=== PATIENT | male | born 1955 | race Caucasian/White ===

== ENCOUNTER 2017-12-26 10:38 | Inpatient (IN) | payer MEDICAID, OTHER ==
[2017-12-26] MEDS ORDERED: Sodium Chloride 0.9% 1,000 ML IV STA (11:15)
--- NOTE | 2017-12-26 11:20 | ED PDOC ---
Arrival/HPI - General Chief Complaint: Abdominal Pain Time Seen by Provider: 12/26/17 11:06 Historian: Patient, Family (Son, who translated for patient) - History of Present Illness Narrative History of Present Illness (Text): 12/26/17 11:15 A 62 year old male, whose past medical history includes cardiac stent, presents to the emergency department accompanied by son complaining of worsening right lower abdominal pain for the past few days. Patient is Czech speaking, history obtained through son. Patient denies any radiating or exacerbating pain. Son notes giving Ibuprofen without any improvement of symptoms. Patient has been tolerating PO intake, he notes his last meal was yesterday night. Patient denies any fever, chills, body aches, nausea, vomiting, diarrhea, constipation, hematochezia, back pain, chest pain, shortness of breath, cough or any other complaints. PMD: None; Patient is visiting from [place] Time/Duration: Other (few days) Symptom Course: Unchanged Quality: Other ("Pain") Context: Home Past Medical History - Provider Review Nursing Documentation Reviewed: Yes - Cardiac Hx Cardiac Disorders: Yes Other/Comment: STENT - Pulmonary Hx Respiratory Disorders: No - Neurological Hx Neurological Disorder: No - HEENT Hx HEENT Disorder: No - Renal Hx Renal Disorder: No - Endocrine/Metabolic Hx Endocrine Disorders: No - Hematological/Oncological Hx Blood Disorders: No - Integumentary Hx Dermatological Disorder: No - Musculoskeletal/Rheumatological Hx Musculoskeletal Disorders: No - Gastrointestinal Hx Gastrointestinal Disorders: No - Genitourinary/Gynecological Hx Genitourinary Disorders: No - Psychiatric Hx Psychophysiologic Disorder: No Hx Substance Use: No - Surgical History Hx Coronary Stent: Yes Family/Social History - Physician Review Nursing Documentation Reviewed: Yes Family/Social History: No Known Family HX Smoking Status: Never Smoked Hx Alcohol Use: Yes Frequency of alcohol use: Socially Hx Substance Use: No Allergies/Home Meds Allergies/Adverse Reactions: Allergies No Known Allergies Allergy (Verified 12/26/17 10:44) Home Medications: Home Meds Medication Instructions Recorded Confirmed No Known Home Med 12/26/17 12/26/17 Review of Systems - Physician Review All systems were reviewed & negative as marked: Yes - Review of Systems Constitutional: absent: Fevers, Night Sweats Respiratory: absent: SOB, Cough Cardiovascular: absent: Chest Pain Gastrointestinal: Abdominal Pain (RLQ pain). absent: Constipation, Diarrhea, Nausea, Vomiting, Hematochezia Musculoskeletal: absent: Back Pain, Myalgias Physical Exam Vital Signs Reviewed: Yes Vital Signs Temp Pulse Resp BP Pulse Ox 12/26/17 13:50 91 H 17 147/92 H 97 12/26/17 10:51 99.2 F 97 H 16 144/91 H 93 L Temperature: Afebrile Blood Pressure: Hypertensive Pulse: Tachycardic Respiratory Rate: Normal Appearance: Positive for: Well-Appearing, Non-Toxic, Comfortable Pain Distress: None Mental Status: Positive for: Alert and Oriented X 3 - Systems Exam Head: Present: Atraumatic, Normocephalic Pupils: Present: PERRL Extroacular Muscles: Present: EOMI Conjunctiva: Present: Normal Mouth: Present: Moist Mucous Membranes Neck: Present: Normal Range of Motion Respiratory/Chest: Present: Clear to Auscultation, Good Air Exchange. No: Respiratory Distress, Accessory Muscle Use Cardiovascular: Present: Regular Rate and Rhythm, Normal S1, S2. No: Murmurs Abdomen: Present: Tenderness (RLQ tenderness to palpation), Normal Bowel Sounds , McBurney's Point Tender. No: Distention, Peritoneal Signs, Rebound, Guarding Back: Present: Normal Inspection Upper Extremity: Present: Normal Inspection. No: Cyanosis, Edema Lower Extremity: Present: Normal Inspection. No: Edema Neurological: Present: GCS=15, CN II-XII Intact, Speech Normal Skin: Present: Warm, Dry, Normal Color. No: Rashes Psychiatric: Present: Alert, Oriented x 3, Normal Insight, Normal Concentration Medical Decision Making ED Course and Treatment: 12/26/17 11:15 Impression: A 62 year old male with worsening right lower abdominal pain. Patient denies any nausea, vomiting, diarrhea or any other complaints. Differential Diagnosis included but are not limited to: Appendicitis vs. Colitis vs Renal Colic Plan: -- Abdomen and pelvis CT -- Labs -- Toradol and IV fluids -- Reassess and disposition Progress Notes: Report Date : 12/26/2017 13:20:37 PROCEDURE: CT Abdomen and Pelvis with contrast Dictator : Nicola Ornelas MD IMPRESSION: 1. The appendix not identified however there is no CT evidence to suggest appendicitis at this time. Lack of oral contrast limits evaluation of the bowel. 2. Gross right hydroureteronephrosis on a chronic basis most likely. No radiodense urolithiasis consider right ureterovesical junction stricture. Minimal residual right renal parenchyma is suspected. No radiodense urolithiasis appreciated bilaterally. No left-sided obstructive uropathy. Multiple small likely renal cortical infarcts are identified at the lower pole as well as a small, parenchymal lucency too small to characterize. 3. Hepatic steatosis. A small cyst seen at the right lobe liver at the dome with 2 additional small hepatic lucencies too small to characterize. Spoke with Dr. Baeza, who states although he does not visualize the appendix on the CT but has no suspicion for appendicitis. 12/26/17 13:55 Case discussed with urologist Dr. Garsia, who states patient needs a urethral stent and recommends admission to the hospitalist service. Case discussed with Dr. Ashli Sue, who accepts admission to her service. 12/26/17 15:10 EKG shows NSR at 84 BPM with T-wave inversions in lead III and aVF. Interpreted by me. - Lab Interpretations Lab Results: 12/26/17 11:25 12/26/17 11:25 Lab Results 12/26/17 11:25: Sodium 139, Potassium 4.0, Chloride 100, Carbon Dioxide 26, Anion Gap 17, BUN 10, Creatinine 1.0, Est GFR ( Amer) > 60, Est GFR (Non- Af Amer) > 60, Random Glucose 115 H, Calcium 9.8, Total Bilirubin 0.6, AST 17, ALT 24, Alkaline Phosphatase 82, Total Protein 7.8, Albumin 3.8, Globulin 3.9, Albumin/Globulin Ratio 1.0 L, Lipase 53 12/26/17 11:25: PT 11.9, INR 1.03, APTT 69.5 H 12/26/17 11:25: WBC 6.4, RBC 4.92, Hgb 15.1, Hct 44.9, MCV 91.3, MCH 30.7, MCHC 33.6, RDW 12.8, Plt Count 235, MPV 10.1, Gran % 57.5, Lymph % (Auto) 22.8, [place] % (Auto) 17.8 H, Eos % (Auto) 1.6, Baso % (Auto) 0.3, Gran # 3.65, Lymph # (Auto ) 1.5, [place] # (Auto) 1.1 H, Eos # (Auto) 0.1, Baso # (Auto) 0.02 I have reviewed the lab results: Yes - RAD Interpretation Radiology Orders: 12/26/17 11:16 ABD & PELVIS IV CONTRAST ONLY [CT] Stat - Medication Orders Current Medication Orders: Aspirin (Aspirin Chewable) 81 mg PO DAILY SERGE Sodium Chloride (Sodium Chloride 0.9%) 1,000 mls @ 100 mls/hr IV .Q10H STA Stop: 12/26/17 21:14 Last Admin: 12/26/17 11:28 Dose: 100 mls/hr eMAR Start Stop Document 12/26/17 11:28 SE (Rec: 12/26/17 11:28 [id number]) Intravenous Solution Start Date 12/26/17 Start Time 11:28 Sodium Chloride (Sodium Chloride 0.9%) 1,000 mls @ 100 mls/hr IV .Q10H SERGE Last Admin: 12/26/17 14:46 Dose: Ceftriaxone Sodium (Rocephin 1 Gram Ivpb) 1 gm in 100 mls @ 100 mls/hr IVPB DAILY SERGE PRN Reason: Protocol Oxycodone/Acetaminophen (Percocet 5/325 Mg Tab) 1 tab PO Q4H PRN PRN Reason: Pain, severe (8-10) Stop: 12/29/17 15:04 Pantoprazole Sodium (Protonix Ec Tab) 40 mg PO ACB SERGE Tamsulosin HCl (Flomax) 0.4 mg PO DAILY SERGE Discontinued Medications Ketorolac Tromethamine (Toradol) 30 mg IVP STAT STA Stop: 12/26/17 11:16 Last Admin: 12/26/17 11:28 Dose: 30 mg MAR Pain Assessment Document 12/26/17 11:28 SE (Rec: 12/26/17 11:28 [id number]) Pain Reassessment Is this a pain reassessment? No Sleep Is patient sleeping during reassessment? No Presence of Pain Presence of Pain Yes Pain Scale Used Pain Scale Used Numeric IVP Administration Document 12/26/17 11:28 SE (Rec: 12/26/17 11:28 [id number]) Charges for Administration # of IVP Administrations 1 - Scribe Statement The provider has reviewed the documentation as recorded by the Migel Gannon Provider Scribe Attestation: All medical record entries made by the Bassamibshannan were at my direction and personally dictated by me. I have reviewed the chart and agree that the record accurately reflects my personal performance of the history, physical exam, medical decision making, and the department course for this patient. I have also personally directed, reviewed, and agree with the discharge instructions and disposition. Disposition/Present on Arrival - Present on Arrival Any Indicators Present on Arrival: No History of DVT/PE: No History of Uncontrolled Diabetes: No Urinary Catheter: No History of Decub. Ulcer: No History Surgical Site Infection Following: None - Disposition Have Diagnosis and Disposition been Completed?: Yes Diagnosis: Hydronephrosis, Abdominal pain Disposition Time: 13:55 Patient Plan: Observation Condition: FAIR
[2017-12-26 11:37] LABS: BASO # 0.02 K/mm3 (0.0-2.0); BASO % 0.3 % (0.0-3.0); EOS # 0.1 (0.0-0.7); EOS % 1.6 % (1.5-5.0); GRAN # 3.65 (1.4-6.5); GRAN % 57.5 % (50.0-68.0); HEMOGLOBIN 15.1 g/dL (14.0-18.0); LYMPH # 1.5 (1.2-3.4); LYMPH % 22.8 % (22.0-35.0); MEAN CELL VOLUME 91.3 fl (80.0-105.0); MEAN CORPUSCULAR HEMOGLOBIN 30.7 pg (25.0-35.0); MEAN CORPUSCULAR HGB CONC 33.6 g/dl (31.0-37.0); MEAN PLATELET VOLUME 10.1 fl (7.0-11.0); MONO # 1.1 (0.1-0.6); MONO % 17.8 % (1.0-6.0); RBC 4.92 10^6/uL (3.5-6.1); RED CELL DISTRIBUTION WIDTH 12.8 % (11.5-14.5); WHITE BLOOD COUNT 6.4 10^3/ul (4.5-11.0)
[2017-12-26 11:47] LABS: ALBUMIN 3.8 g/dL (3.0-4.8); ALT/SGPT 24 U/L (7-56); AST/SGOT 17 U/L (17-59); BLOOD UREA NITROGEN 10 mg/dL (7-21); CALCIUM 9.8 mg/dL (8.4-10.5); GFR AFRICAN-AMERICAN > 60; GFR NON-AFRICAN AMERICAN > 60; LIPASE 53 U/L (23-300)
[2017-12-26 11:48] LABS: INR 1.03 (0.93-1.08); PARTIAL THROMBOPLASTIN TIME 69.5 Seconds (25.1-36.5); PROTHROMBIN TIME 11.9 SECONDS (9.4-12.5)
[2017-12-26] MEDS ORDERED: Iohexol 350 MG/100 ML VIAL ONE (11:50)
--- NOTE | 2017-12-26 13:22 | CT ---
PROCEDURE: CT Abdomen and Pelvis with contrast HISTORY: rlq abd pain r/o appendicitis COMPARISON: None. TECHNIQUE: Following the intravenous administration of iodinated contrast material, a CT examination of the abdomen and pelvis performed from the domes of the diaphragms to the symphysis pubis with reformatted datasets provided not only axial but also sagittal and coronal planes. Oral contrast was not administered as per referring physician request. Contrast dose: Omnipaque 350, 100 cc Radiation dose: Total exam DLP = 1083.78 mGy-cm. This CT exam was performed using one or more of the following dose reduction techniques: Automated exposure control, adjustment of the mA and/or kV according to patient size, and/or use of iterative reconstruction technique. FINDINGS: LOWER THORAX: Mild cardiomegaly is noted however this no pleural or pericardial effusion identified. Mild bilateral basilar dependent atelectasis is noted. LIVER: 1.2 cm cyst seen at the dome of the liver with the attenuation liver diminished diffusely compatible with fatty infiltration. Tiny lucency seen at the left lobe liver laterally, too small to characterize with an additional small lucencies seen the right lobe liver inferiorly, also too small to characterize. GALLBLADDER AND BILE DUCTS: Unremarkable. PANCREAS: Unremarkable. No gross lesion or ductal dilatation. SPLEEN: Unremarkable. ADRENALS: Left adrenal gland is unremarkable the right adrenal gland is likely compressed anteromedially due to gross hydronephrosis of the right kidney. KIDNEYS AND URETERS: Gross right hydronephrosis and hydroureter are identified with only trace residual renal parenchymal likely present in the periphery of the hydronephrotic pattern. Given gross dilatation of the right ureter without radiodense urolithiasis, this is likely a function of a high-grade distal right ureterovesical stricture and not a right ureteropelvic junction stricture. Encounter no radiodense urolithiasis is identifiable bilaterally with the urinary bladder only mildly distended. No definitive solid mass is appreciable throughout this exam. No perinephric reaction is appreciated. Further clinical correlation is advised. A small 7 mm intrarenal lucency seen the lower pole left kidney which is too small to characterize but may represent a small cyst. A small cortical defects at the lower pole left kidney may reflect chronic infarcts. No left-sided radiodense urolithiasis or obstructive uropathy. No left-sided perinephric reaction identified. Left ureter appears normal caliber. VASCULATURE: Unremarkable. No aortic aneurysm. BOWEL: Lack of oral contrast limits the evaluation of small and large bowel segments with peristalsis generating artifacts obscuring the bowel as well. The stomach is collapsed. No bowel obstruction is appreciated or measure edema. The appendix is not identified. There is no defined CT pattern appendicitis nevertheless. APPENDIX: Normal appendix. PERITONEUM: Unremarkable. No free fluid. No free air. LYMPH NODES: Unremarkable. No enlarged lymph nodes. BLADDER: Unremarkable. REPRODUCTIVE: There is inhomogeneous enhancement of an upper limits of normal size prostate gland which is nonspecific. BONES: No acute fracture. OTHER FINDINGS: None. IMPRESSION: 1. The appendix not identified however there is no CT evidence to suggest appendicitis at this time. Lack of oral contrast limits evaluation of the bowel. 2. Gross right hydroureteronephrosis on a chronic basis most likely. No radiodense urolithiasis consider right ureterovesical junction stricture. Minimal residual right renal parenchyma is suspected. No radiodense urolithiasis appreciated bilaterally. No left-sided obstructive uropathy. Multiple small likely renal cortical infarcts are identified at the lower pole as well as a small, parenchymal lucency too small to characterize. 3. Hepatic steatosis. A small cyst seen at the right lobe liver at the dome with 2 additional small hepatic lucencies too small to characterize.
[2017-12-26 14:29] LABS: PH,URINE 6.5 (4.7-8.0); URINE BILIRUBIN NEGATIVE (NEGATIVE); URINE BLOOD NEGATIVE (NEGATIVE); URINE GLUCOSE (UA) NEGATIVE (NEGATIVE); URINE LEUKOCYTE ESTERASE NEGATIVE Leu/uL (NEGATIVE); URINE NITRATE NEGATIVE (NEGATIVE); URINE PROTEIN 30 mg/dL (<30 mg/dL); URINE UROBILINOGEN 0.2 E.U./dL (<1 E.U./dL)
[2017-12-26 14:32] LABS: URINE APPEARANCE SL CLOUDY (CLEAR); URINE COLOR YELLOW (YELLOW)
[2017-12-26 14:36] LABS: URINE RBC NEGATIVE /hpf (0-2); URINE WBC NEGATIVE /hpf (0-6)
[2017-12-26] MEDS: Sodium Chloride 0.9% 1,000 ML IV SCH (14:46)
[2017-12-26] MEDS ORDERED: Oxycodone/Acetaminophen 5/325 mg Tab PO PRN (15:03)
[2017-12-26] MEDS: cefTRIAXone 1 gm 1 GM/100 ML BAG IVPB SCH (15:28)
--- NOTE | 2017-12-26 15:31 | CP.PCM.HP ---
<Mitch Cameron - Last Filed: 12/26/17 16:21> History of Present Illness - History of Present Illness History of Present Illness: PGY-1 H&P for Dr. Ashli Sue Hospitalist Service CC: Abdominal pain Translation services provided by certified court/medical interpreter Bee Santoro #[id number] This is a 62 year old male with PMHx CAD s/p 2 stents and right nephrolithiasis who presents complaining of right lower quadrant abdominal pain. Pain described as stabbing pain without radiation. Patient states that this began 5 days ago. Patient has tried Ibuprofen without relief at home. Patient is visiting from [place] for the past 3 months and is set to return in about 10 days. Patient states that he stopped taking his Aspirin about 15 days ago because he states that "he felt well." Patient initially denied flank pain but stated that he will experience pain that feels "anterior to the flank" as per cutter operator brick. Patient denies nausea, vomiting, constipation, diarrhea, dysuria, hematuria, hematochezia. PMHx: CAD s/p 2 stents, right sided nephrolithiasis PSHx: cardiac catheterization 4 years ago. Surgical removal of right nephrolithiasis 10 years ago. Allergies: NKDA Social: Denies tobacco, alcohol, drugs. Visiting from [place] and staying with his son. [place] medications: [place], he takes 2 tablets of Aspirin 75 mg each everyday although not for the past 15 days. Present on Admission - Present on Admission Any Indicators Present on Admission: No Review of Systems - Constitutional Constitutional: absent: Chills, Fever - EENT Eyes: absent: Change in Vision Ears: absent: Decreased Hearing Nose/Mouth/Throat: absent: Nasal Congestion - Cardiovascular Cardiovascular: absent: Chest Pain, Chest Pain at Rest, Dyspnea, Pedal Edema - Respiratory Respiratory: absent: Cough, Dyspnea, Wheezing - Gastrointestinal Gastrointestinal: Abdominal Pain (right lower quadrant) - Genitourinary Genitourinary: Flank Pain ("anterior to the flank" per cutter operator brick). absent: Difficulty Urinating, Dysuria, Hematuria, Urinary Frequency - Musculoskeletal Musculoskeletal: absent: Back Pain - Integumentary Integumentary: absent: Rash - Neurological Neurological: absent: Dizziness, Headaches - Psychiatric Psychiatric: absent: Change in Appetite - Endocrine Endocrine: absent: Palpitations Past Patient History - Past Social History Smoking Status: Never Smoked - CARDIAC Hx Cardiac Disorders: Yes Other/Comment: STENT - PULMONARY Hx Respiratory Disorders: No - NEUROLOGICAL Hx Neurological Disorder: No - HEENT Hx HEENT Problems: No - RENAL Hx Chronic Kidney Disease: No - ENDOCRINE/METABOLIC Hx Endocrine Disorders: No - HEMATOLOGICAL/ONCOLOGICAL Hx Blood Disorders: No - INTEGUMENTARY Hx Dermatological Problems: No - MUSCULOSKELETAL/RHEUMATOLOGICAL Hx Musculoskeletal Disorders: No - GASTROINTESTINAL Hx Gastrointestinal Disorders: No - GENITOURINARY/GYNECOLOGICAL Hx Genitourinary Disorders: No - PSYCHIATRIC Hx Psychophysiologic Disorder: No Hx Substance Use: No - SURGICAL HISTORY Hx Coronary Stent: Yes Meds Allergies/Adverse Reactions: Allergies Allergy/AdvReac Type Severity Reaction Status Date / Time No Known Allergies Allergy Verified 12/26/17 10:44 Physical Exam - Constitutional Appears: No Acute Distress - Head Exam Head Exam: ATRAUMATIC, NORMOCEPHALIC - Eye Exam Eye Exam: EOMI, PERRL - ENT Exam ENT Exam: Mucous Membranes Moist - Respiratory Exam Respiratory Exam: Clear to Auscultation Bilateral, NORMAL BREATHING PATTERN. absent: Rales, Rhonchi, Wheezes - Cardiovascular Exam Cardiovascular Exam: REGULAR RHYTHM, +S1, +S2 - GI/Abdominal Exam GI & Abdominal Exam: Normal Bowel Sounds, Soft. absent: Tenderness Additional comments: Obese body habitus - Extremities Exam Extremities exam: Positive for: pedal pulses present. Negative for: pedal edema , tenderness - Back Exam Back exam: absent: CVA tenderness (L), CVA tenderness (R) - Neurological Exam Neurological exam: Alert, CN II-XII Intact, Oriented x3 - Psychiatric Exam Psychiatric exam: Normal Affect, Normal Mood - Skin Skin Exam: Dry, Warm Results - Vital Signs Recent Vital Signs: Last Vital Signs Temp 99.2 F 12/26/17 10:51 Pulse 91 H 12/26/17 13:50 Resp 17 12/26/17 13:50 BP 147/92 H 12/26/17 13:50 Pulse Ox 97 12/26/17 13:50 - Labs Result Diagrams: 12/26/17 11:25 12/26/17 11:25 Labs: Laboratory Results - last 24 hr 12/26/17 14:00 Urine Color Yellow Urine Appearance Sl cloudy Urine pH 6.5 Ur Specific [place] <= 1.005 Urine Protein 30 H Urine Glucose (UA) Negative Urine Ketones Negative Urine Blood Negative Urine Nitrate Negative Urine Bilirubin Negative Urine Urobilinogen 0.2 Ur Leukocyte Esterase Negative Urine RBC Negative Urine WBC Negative Assessment & Plan - Assessment and Plan (Free Text) Assessment: This is a 62 year old male with PMHx CAD s/p 2 stents and right sided nephrolithiasis s/p surgical removal complaining of right lower quadrant pain. Pain likely due to stricture on the right. Per urology, patient will require a stent. Right Hydronephrosis CT demonstrates * Gross right hydroureteronephrosis on a chronic basis most likely. * No radiodense urolithiasis consider right ureterovesical junction stricture. * No radiodense urolithiasis appreciated bilaterally. No left-sided obstructive uropathy. 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 Urology consult, help appreciated Rocephin 1 gm daily Flomax 0.4 mg PO daily Strain urine for calculi History of CAD with stents EKG demonstrates NSR with T wave inversions in leads III and aVF. Cardiology consulted, help appreciated Patient had 2 stents placed 4 years ago and was only taking Aspirin which he had abruptly stopped 15 days prior to admission Prophylaxis GI: Protonix DVT: holding for possible procedure Case discussed and seen with Dr. Ashil Sue <Ashli Sue - Last Filed: 12/27/17 08:49> Results - Vital Signs Recent Vital Signs: Last Vital Signs Temp 99.2 F 12/26/17 22:46 Pulse 98 H 12/26/17 22:46 Resp 16 12/26/17 22:46 BP 154/85 H 12/26/17 22:46 Pulse Ox 95 12/26/17 22:41 - Labs Result Diagrams: 12/27/17 05:45 12/27/17 05:45 Labs: Laboratory Results - last 24 hr 12/26/17 12/27/17 12/27/17 14:00 05:45 05:45 WBC 6.8 RBC 4.86 Hgb 14.6 Hct 44.2 MCV 90.9 MCH 30.0 MCHC 33.0 RDW 12.7 Plt Count 235 MPV 10.3 Gran % 55.1 Lymph % (Auto) 25.4 [place] % (Auto) 17.4 H Eos % (Auto) 1.8 Baso % (Auto) 0.3 Gran # 3.76 Lymph # (Auto) 1.7 [place] # (Auto) 1.2 H Eos # (Auto) 0.1 Baso # (Auto) 0.02 Sodium 135 Potassium 3.9 Chloride 100 Carbon Dioxide 26 Anion Gap 14 BUN 9 Creatinine 0.9 Est GFR ( Amer) > 60 Est GFR (Non-Af Amer) > 60 Random Glucose 132 H Calcium 9.0 Phosphorus 2.9 Magnesium 2.1 Total Bilirubin 0.5 AST 16 L ALT 20 Alkaline Phosphatase 76 Total Protein 7.6 Albumin 3.7 Globulin 4.0 Albumin/Globulin Ratio 0.9 L Triglycerides 129 Cholesterol 248 H LDL Cholesterol Direct 177 H HDL Cholesterol 35 TSH 3rd Generation Urine Color Yellow Urine Appearance Sl cloudy Urine pH 6.5 Ur Specific [place] <= 1.005 Urine Protein 30 H Urine Glucose (UA) Negative Urine Ketones Negative Urine Blood Negative Urine Nitrate Negative Urine Bilirubin Negative Urine Urobilinogen 0.2 Ur Leukocyte Esterase Negative Urine RBC Negative Urine WBC Negative 12/27/17 05:45 WBC RBC Hgb Hct MCV MCH MCHC RDW Plt Count MPV Gran % Lymph % (Auto) [place] % (Auto) Eos % (Auto) Baso % (Auto) Gran # Lymph # (Auto) [place] # (Auto) Eos # (Auto) Baso # (Auto) Sodium Potassium Chloride Carbon Dioxide Anion Gap BUN Creatinine Est GFR ( Amer) Est GFR (Non-Af Amer) Random Glucose Calcium Phosphorus Magnesium Total Bilirubin AST ALT Alkaline Phosphatase Total Protein Albumin Globulin Albumin/Globulin Ratio Triglycerides Cholesterol LDL Cholesterol Direct HDL Cholesterol TSH 3rd Generation 2.43 Urine Color Urine Appearance Urine pH Ur Specific [place] Urine Protein Urine Glucose (UA) Urine Ketones Urine Blood Urine Nitrate Urine Bilirubin Urine Urobilinogen Ur Leukocyte Esterase Urine RBC Urine WBC Attending/Attestation - Attestation I have personally seen and examined this patient.: Yes I have fully participated in the care of the patient.: Yes I have reviewed all pertinent clinical information: Yes Notes (Text): I have seen and examined the patient at bedside. Agree with the above note with the following additions/ exceptions: Briefly this is 62 year old male with history of CAD s/p 2 stents and right nephrolithiasis s/p stone removal who came today for evaluation of abdominal pain. 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 Patient denies fever, chills, hematuria or oliguria. Will admit the patient for pain control and urology evaluation. History was obtained via interpretor. Patient is concerned that he is going back to [place] in few weeks. Patient was explained that he will need cystoscopy and right sided ureteral stent. Will start IVF, flomax to facilitate stone passage given history of nephrolithiasis and Rocephin empirically prior to uretheral instrumentation. Strain urine for calculi. Will closely monitor BP and add beta yoni if BP remains high. Upon discharge patient will follow up with PMD of choice. Dr Ashli Sue
--- NOTE | 2017-12-26 15:48 | RAD ---
HISTORY: Coronary artery disease. COMPARISON: No prior. FINDINGS: LUNGS: No active pulmonary disease. PLEURA: No significant pleural effusion identified, no pneumothorax apparent. CARDIOVASCULAR: Cardiomegaly. No evidence of acute, significant cardiovascular disease. OSSEOUS STRUCTURES: No significant abnormalities. VISUALIZED UPPER ABDOMEN: Normal. OTHER FINDINGS: None. IMPRESSION: No active disease.
[2017-12-26 15:51] LABS: HDL CHOLESTEROL 34 mg/dL (29-60)
[2017-12-26 16:02] LABS: LDL CHOLESTEROL 194 mg/dL (0-129)
[2017-12-26 22:53] VITALS: BMI 34.7
[2017-12-26] MEDS ORDERED: Pneumococcal 23-Valent Vaccine IM ONE (22:53)
[2017-12-26] MEDS ORDERED: Influenza Vaccine 60 mcg/0.5 mL SYR (4YR UP) IM ONE (22:53)
[2017-12-27] MEDS: Sodium Chloride 0.9% 1,000 ML IV SCH (01:05)
--- NOTE | 2017-12-27 06:03 | CON ---
DATE: REASON FOR CONSULTATION AND FOLLOWUP: Preop evaluation, risk stratification for right hydronephrosis, significant coronary artery disease status post stent four years ago. BRIEF CLINICAL HISTORY: This is a 62-year-old French male, slovenian speaking, information obtained from the son who is at the bedside in ER bed 21 at the time of interview. The patient denies any chest pain, shortness of breath, or any palpitation. Past history is significant for coronary artery disease status post two stents deployed in [place] four years ago. Since then, the patient is fairly stable. No chest pain. No palpitation. Going up and down, no shortness of breath. Currently, only taking an aspirin since then. PAST MEDICAL HISTORY: Significant for coronary artery disease status post two stents in [place] four years ago. PAST SURGICAL HISTORY: Significant for a stone in the right ureter, possibly ureteral bladder junction, and surgically it was removed from anterior approach. SOCIAL HISTORY: Denies any history of alcohol abuse. CURRENT MEDICATIONS: The patient is taking two baby aspirin 75 mg from [place] every day. ALLERGY: TO NONE. REVIEW OF SYSTEMS: As per HPI. PHYSICAL EXAMINATION: As follows, VITAL SIGNS: As follows, temperature afebrile, heart rate 97, blood pressure 144/91. HEENT: PERRLA. Extraocular muscles are intact. NECK: Supple. No carotid bruits. No thyromegaly. CHEST: Clear to auscultation. HEART: S1 and S2 regular. ABDOMEN: Soft. A scar noted on right anterior abdominal wall of previous surgery for removal of a stone from the possible ureteral bladder junction. Rest of the abdomen is soft. EXTREMITIES: Clubbing, cyanosis negative. LABORATORY DATA: EKG shows normal sinus, Q wave in II, III, aVF, possible inferior wall MO of undetermined age. Blood workup as follows; WBC 7.5, hemoglobin 15, hematocrit 44.9, and platelet count 235. Chemistry shows sodium 139, potassium 4, chloride 100, carbon dioxide 26, anion gap of 17, BUN 10, and creatinine 1.0. Triglycerides are 144, cholesterol 259, LDL 194, HDL 34. CT scan of abdomen and pelvis showed multiple renal calculi noted in the CAT scan. IMPRESSION: Hydroureter, stone in the right ureter, history of surgically removed a stone from right ureteric bladder junction, history of coronary artery disease status post stents 4 years ago, currently on baby aspirin. No evidence of ischemia, pretty active lifestyle as per son who is at the bedside. No chest pain. No shortness of breath. RECOMMENDATION: At this time, since the patient does not have any evidence of ischemia, no evidence of arrhythmia, no evidence of congestive heart failure, the patient is at moderate risk to go for either surgical approach and mild to moderate risk for laser. We will start low-dose beta yoni, antihypertensive medication, as the patient is not on antihypertensive medication. We will get the lipid profile fasting, TSH, hemoglobin A1c. We will follow with you. No absolute contraindication, the patient is clear to go for urologic procedure. Thank you, Dr. Sue, for providing us the opportunity in taking care of the patient Mainor Sloan. Riddhi Taylor MD
[2017-12-27 06:49] LABS: ALB/GLOB RATIO 0.9 (1.1-1.8); ALBUMIN 3.7 g/dL (3.0-4.8); ALT/SGPT 20 U/L (7-56); AST/SGOT 16 U/L (17-59); BLOOD UREA NITROGEN 9 mg/dL (7-21); GFR AFRICAN-AMERICAN > 60; GFR NON-AFRICAN AMERICAN > 60; HDL CHOLESTEROL 35 mg/dL (29-60); MAGNESIUM 2.1 mg/dL (1.7-2.2)
[2017-12-27 07:00] LABS: LDL CHOLESTEROL 177 mg/dL (0-129)
[2017-12-27 07:10] LABS: BASO # 0.02 K/mm3 (0.0-2.0); BASO % 0.3 % (0.0-3.0); EOS # 0.1 (0.0-0.7); EOS % 1.8 % (1.5-5.0); GRAN # 3.76 (1.4-6.5); GRAN % 55.1 % (50.0-68.0); HEMOGLOBIN 14.6 g/dL (14.0-18.0); LYMPH # 1.7 (1.2-3.4); LYMPH % 25.4 % (22.0-35.0); MEAN CELL VOLUME 90.9 fl (80.0-105.0); MEAN PLATELET VOLUME 10.3 fl (7.0-11.0); MONO # 1.2 (0.1-0.6); MONO % 17.4 % (1.0-6.0); RBC 4.86 10^6/uL (3.5-6.1); RED CELL DISTRIBUTION WIDTH 12.7 % (11.5-14.5); WHITE BLOOD COUNT 6.8 10^3/ul (4.5-11.0)
[2017-12-27] MEDS: Pantoprazole 40 mg EC Tab PO SCH (07:30)
[2017-12-27] MEDS ORDERED: Metoprolol Succinate 25 mg XL Tab PO SCH (08:00)
[2017-12-27] MEDS: cefTRIAXone 1 gm 1 GM/100 ML BAG IVPB SCH (10:00)
--- NOTE | 2017-12-27 10:18 | CARD ---
APPROVED REPORT EKG Measurement Heart [id number] <Conclusion> Normal sinus rhythm Possible Inferior infarct, age undetermined NSSTW changes
[2017-12-27] MEDS ORDERED: Iohexol 240 (50 ml) ONE (12:16)
[2017-12-27] MEDS ORDERED: Lidocaine 2% Jelly (Uro-Jet) ONE (12:16)
[2017-12-27] MEDS ORDERED: Propofol 10 mg/ml Inj (20 ML) ONE (12:17)
[2017-12-27] MEDS ORDERED: Midazolam 2 MG/2 ML VIAL ONE (12:17)
[2017-12-27] MEDS ORDERED: cefTRIAXone (Rocephin) 1 gm Inj ONE (12:21)
[2017-12-27] MEDS ORDERED: Lactated Ringer's 1,000 ML IV SCH (13:00)
--- NOTE | 2017-12-27 14:06 | PN ---
DATE: 12/27/2017 REASON FOR CONSULTATION: Preop evaluation, risk stratification for right hydronephrosis, history of coronary artery disease status post stent four years ago. SUBJECTIVE: The patient denies any chest pain, shortness of breath, or any palpitation. PHYSICAL EXAMINATION: GENERAL: Not in any apparent distress. VITAL SIGNS: Temperature afebrile, heart rate 90, blood pressure . HEENT: PERRLA. Extraocular muscles are intact. NECK: Supple. No carotid bruits or thyromegaly, CHEST: Clear to auscultation. HEART: S1 and S2, regular. ABDOMEN: Soft. EXTREMITIES: Clubbing, cyanosis negative. LABORATORY DATA: Blood workup as follows: WBC 6.8, hemoglobin 14.6, hematocrit 44.2, and platelet count 235. Chemistry shows sodium 135, potassium 3.9, chloride 100, carbon dioxide 26, anion gap of 14, BUN 9, and creatinine 0.9. Total triglycerides 129, cholesterol 148, LDL 177, HDL 35. IMPRESSION: Hyperlipidemia, obesity, diabetes, history of coronary artery disease status post stent four years ago in [place] and now admitted with hydronephrosis and stone in the ureter, history of prior removal of a stone from right ureteral bladder junction surgically. RECOMMENDATION: The patient is cleared from Cardiology point of view to go for urological procedure. Aggressive control of blood pressure. Continue hydration. We will start ramipril 10 mg and aggressive control of blood pressure because of diabetes and we will start also Lipitor. We will increase Lopressor to 25 mg p.o. b.i.d. The patient is cleared from Cardiology point of view to go for urological procedure. Discussed with Dr. Garsia. Riddhi Taylor MD
--- NOTE | 2017-12-27 14:22 | CP.PCM.PN ---
<Mitch Cameron - Last Filed: 12/27/17 18:42> Subjective - Date & Time of Evaluation Date of Evaluation: 12/27/17 Time of Evaluation: 09:00 - Subjective Subjective: Medicine progress note for Dr. Ashli Sue Hospitalist Service Patient seen and examined. Patient states that he is doing well this morning, and pain is controlled. Patient denies fever, chills, chest pain, dyspnea, dysuria. Objective - Vital Signs/Intake and Output Vital Signs (last 24 hours): Temp Pulse Resp BP Pulse Ox 98.4 F 81 17 138/89 96 12/27/17 13:35 12/27/17 13:35 12/27/17 13:35 12/27/17 13:35 12/27/17 13:35 Intake and Output: 12/27/17 12/27/17 06:59 18:59 Intake Total 180 0 Balance 180 0 - Medications Medications: Current Medications Aspirin (Aspirin Chewable) 81 mg PO DAILY [facility] Last Admin: 12/26/17 15:28 Dose: 81 mg Atorvastatin Calcium (Lipitor) 40 mg PO DIN [facility] Hydralazine HCl (Apresoline) 10 mg PO QID PRN PRN Reason: for SBP>170 Sodium Chloride (Sodium Chloride 0.9%) 1,000 mls @ 100 mls/hr IV .Q10H [facility] Last Admin: 12/27/17 01:05 Dose: 100 mls/hr Ceftriaxone Sodium (Rocephin 1 Gram Ivpb) 1 gm in 100 mls @ 100 mls/hr IVPB DAILY [facility] PRN Reason: Protocol Last Admin: 12/27/17 10:00 Dose: 100 mls/hr Lactated Ringer's (Lactated Ringer's) 1,000 mls @ 75 mls/hr IV .[id number] [facility] Stop: 12/27/17 15:01 Metoprolol Tartrate (Lopressor) 25 mg PO BID [facility] Pantoprazole Sodium (Protonix Ec Tab) 40 mg PO ACB [facility] Last Admin: 12/27/17 07:30 Dose: Not Given Ramipril (Altace) 10 mg PO DAILY [facility] Tamsulosin HCl (Flomax) 0.4 mg PO DAILY [facility] Last Admin: 12/27/17 10:00 Dose: Not Given Tramadol HCl (Ultram) 50 mg PO TID PRN PRN Reason: Pain, moderate (4-7) Last Admin: 12/27/17 00:19 Dose: 50 mg - Labs Labs: 12/27/17 05:45 12/27/17 05:45 PT 11.9 SECONDS (9.4-12.5) 12/26/17 11:25 INR 1.03 (0.93-1.08) 12/26/17 11:25 APTT 69.5 Seconds (25.1-36.5) H 12/26/17 11:25 - Constitutional Appears: No Acute Distress - Head Exam Head Exam: ATRAUMATIC, NORMOCEPHALIC - Eye Exam Eye Exam: EOMI, Normal appearance - ENT Exam ENT Exam: Mucous Membranes Moist - Respiratory Exam Respiratory Exam: Clear to Ausculation Bilateral, NORMAL BREATHING PATTERN. absent: Rales, Rhonchi, Wheezes - Cardiovascular Exam Cardiovascular Exam: REGULAR RHYTHM, +S1, +S2 - GI/Abdominal Exam GI & Abdominal Exam: Soft, Normal Bowel Sounds. absent: Tenderness Additional comments: obese body habitus - Extremities Exam Extremities Exam: absent: Pedal Edema, Tenderness - Back Exam Back Exam: absent: CVA tenderness (L), CVA tenderness (R) - Neurological Exam Neurological Exam: Alert, Awake, Oriented x3 - Psychiatric Exam Psychiatric exam: Normal Affect, Normal Mood - Skin Skin Exam: Dry, Intact, Normal Color, Warm Assessment and Plan - Assessment and Plan (Free Text) Assessment: This is a 62 year old male with PMHx CAD s/p 2 stents and right sided nephrolithiasis s/p surgical removal complaining of right lower quadrant pain. Pain likely due to stricture on the right. Per urology, patient will require a stent; however a stent was unable to be placed during cystoscopy on 12/27/17. Right Hydronephrosis CT demonstrates * Gross right hydroureteronephrosis on a chronic basis most likely. * No radiodense urolithiasis consider right ureterovesical junction stricture. * No radiodense urolithiasis appreciated bilaterally. No left-sided obstructive uropathy. 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 Urology consult, help appreciated Rocephin 1 gm daily Flomax 0.4 mg PO daily Strain urine for calculi Patient taken for cystoscopy but unable to place stent. Kidney nuclear scan ordered for further evaluation History of CAD with stents EKG demonstrates NSR with T wave inversions in leads III and aVF. Cardiology consulted, help appreciated Patient had 2 stents placed 4 years ago and was only taking Aspirin which he had abruptly stopped 15 days prior to admission Continue Aspirin, Lopressor, Ramipril Prophylaxis GI: Protonix DVT: holding chemical VTE for now since post procedure, SCDs Disposition: Awaiting results from renal scan as unable to place stent. Discussed and seen with Dr. Ashli Sue <Ashli Sue - Last Filed: 12/29/17 12:57> Objective - Vital Signs/Intake and Output Vital Signs (last 24 hours): Temp Pulse Resp BP Pulse Ox 98.7 F 85 20 139/89 96 12/28/17 16:04 12/28/17 17:00 12/28/17 16:04 12/28/17 17:00 12/28/17 16:04 - Labs Labs: 12/28/17 05:20 12/28/17 05:20 PT 12.8 SECONDS (9.4-12.5) H 12/27/17 16:15 INR 1.12 (0.93-1.08) H 12/27/17 16:15 APTT 69.5 Seconds (25.1-36.5) H 12/26/17 11:25 Attending/Attestation - Attestation I have personally seen and examined this patient.: Yes I have fully participated in the care of the patient.: Yes I have reviewed all pertinent clinical information, including history, physical exam and plan: Yes Notes (Text): I have seen and examined the patient at bedside. Agree with the above note with the following additions/ exceptions: Briefly this is 62 year old male with history of CAD s/p 2 stents and right nephrolithiasis s/p stone removal who came for evaluation of abdominal pain. 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 Patient denies fever, chills, hematuria or oliguria. Patient was admitted pain control and urology evaluation. History was obtained via product managent intern. Patient is concerned that he is going back to [place] in few weeks. Patient was explained that he will need cystoscopy and right sided ureteral stent.Today he underwent cystscopy however stent could not be placed due to stricture. Urologist advised to do renal function scan for evaluation of possible per cutaneous nephrostomy. Continue IVF and flomax. Patient denies any complaints. Continue to strain urine for calculi. Plan was explained to the patient and his son. Upon discharge patient will follow up with PMD of choice. Dr Ashli Sue
--- NOTE | 2017-12-27 14:42 | RAD ---
PROCEDURE: Intraoperative Fluoroscopy. HISTORY: CYSTOGRAM FINDINGS: Fluoroscopic assistance was provided for performance of a cystogram. Urinary bladder ya appear smooth. No suspicious filling defect or contrast collections appreciated in the images submitted.. Please refer to the operative report from OLGA Henry, , MD [facility]. 2.7 seconds of fluoroscopy time was utilized with a total cumulative DLP dose of 3.6 mGy.
[2017-12-27 16:44] LABS: INR 1.12 (0.93-1.08); PROTHROMBIN TIME 12.8 SECONDS (9.4-12.5)
[2017-12-27 23:23] VITALS: O2SAT 96
[2017-12-28 05:59] LABS: BASO # 0.02 K/mm3 (0.0-2.0); BASO % 0.3 % (0.0-3.0); EOS # 0.1 (0.0-0.7); EOS % 1.3 % (1.5-5.0); GRAN # 4.86 (1.4-6.5); GRAN % 61.1 % (50.0-68.0); HEMOGLOBIN 13.8 g/dL (14.0-18.0); LYMPH # 1.5 (1.2-3.4); LYMPH % 19.1 % (22.0-35.0); MEAN CELL VOLUME 90.4 fl (80.0-105.0); MEAN CORPUSCULAR HEMOGLOBIN 30.2 pg (25.0-35.0); MEAN CORPUSCULAR HGB CONC 33.4 g/dl (31.0-37.0); MEAN PLATELET VOLUME 10.2 fl (7.0-11.0); MONO # 1.5 (0.1-0.6); MONO % 18.2 % (1.0-6.0); RBC 4.57 10^6/uL (3.5-6.1); RED CELL DISTRIBUTION WIDTH 12.6 % (11.5-14.5)
[2017-12-28 06:13] LABS: ALB/GLOB RATIO 0.9 (1.1-1.8); ALBUMIN 3.4 g/dL (3.0-4.8); ALT/SGPT 18 U/L (7-56); AST/SGOT 19 U/L (17-59); BLOOD UREA NITROGEN 11 mg/dL (7-21); CALCIUM 8.9 mg/dL (8.4-10.5); GFR AFRICAN-AMERICAN > 60; GFR NON-AFRICAN AMERICAN > 60
[2017-12-28] MEDS: Pantoprazole 40 mg EC Tab PO SCH (08:24)
--- NOTE | 2017-12-28 13:19 | NM ---
PROCEDURE: Renal scan and flow study. HISTORY: eval right kidney function COMPARISON: 12/26/2017. CT abdomen and pelvis TECHNIQUE: 14.3 mCi technetium 99 M Mag 3 administered intravenously. FINDINGS: Right Kidney: Flow component: Diminished perfusion to the right kidney. Time to peak: 1.5 minutes Peak to T1/2 Peak: 33 minutes Left Kidney: Flow component: Normal flow to the left kidney Time to peak: 29.5 minutes Peak to T1/2 Peak: Not applicable Split Renal Function: Right kidney 7.2 % Left kidney 92.8 % IMPRESSION: Virtual absence of function in the right kidney consistent with findings on recent CT scan. There is failure of clearance of activity in the left kidney suggesting an obstructing component. The left kidney contributes 92.8% of total renal function.
--- NOTE | 2017-12-28 13:56 | PN ---
DATE: 12/28/2017 REASON FOR THE CONSULTATION AND FOLLOWUP: Preop evaluation, risk stratification for right hydronephrosis, coronary artery disease, status post 4 years ago had two stents in [place]. SUBJECTIVE: The patient denies any chest pain, shortness of breath, or any palpitation. OBJECTIVE: GENERAL: Not in any apparent distress, complaining of pain in right flank. VITAL SIGNS: Temperature afebrile, heart rate 98, and blood pressure 147/97. HEENT: PERRLA, intact. NECK: Supple. No carotid bruit. No thyromegaly. CHEST: Clear to auscultation. HEART: S1 and S2, regular. ABDOMEN: Soft. EXTREMITIES: Clubbing and cyanosis negative. LABORATORY DATA: Blood workup as follows. WBC 8, hemoglobin 13.8, hematocrit 41.3, platelet count 237. Chemistry shows sodium 132, potassium 4.2, chloride 99, carbon dioxide 26, anion gap of 15. BUN 11, creatinine 1.1. IMPRESSION: Pain in the right flank; history of removal of stone from right ureteropelvic junction; right hydroureter; history of coronary stent 4 years, two stents in [place]. Currently came in on only baby aspirin. No other medication. RECOMMENDATION: The patient was cleared from cardiology point of view and started medical treatment including atorvastatin, ramipril, and metoprolol. We will increase the ramipril to 20 mg because patient's blood pressure is still up. We will follow with you. CVS status is stable. We will increase the ramipril to 20 mg daily from today. Once urological process is complete, the patient can be discharged home. Thank you, Dr. Sue for providing us the opportunity in taking care of the patient, Mainor Sloan. Riddhi Taylor MD
[2017-12-28 16:06] VITALS: BP 139/89; PULSE 85; RESP 20; TEMP 98.7
--- NOTE | 2017-12-28 17:23 | CP.PCM.DIS ---
<Mitch Cameron - Last Filed: 12/28/17 18:17> Provider - Provider Date of Admission: 12/27/17 13:52 Attending physician: Ashli Sue MD Consults: Urology-Dr. Terrie Garsia Cardiology-Dr. Taylor Time Spent in preparation of Discharge (in minutes): 45 Diagnosis - Discharge Diagnosis (1) Hydronephrosis of right kidney Status: Acute Priority: High (2) History of coronary artery disease Status: Chronic Priority: Medium (3) Hypertension Status: Chronic Priority: Medium (4) Hyperlipidemia Status: Chronic Priority: Medium (5) Impaired glucose tolerance Status: Chronic Priority: Low Hospital Course - Lab Results Lab Results: Most Recent Lab Values WBC 8.0 10^3/ul (4.5-11.0) 12/28/17 05:20 RBC 4.57 10^6/uL (3.5-6.1) 12/28/17 05:20 Hgb 13.8 g/dL (14.0-18.0) L 12/28/17 05:20 Hct 41.3 % (42.0-52.0) L 12/28/17 05:20 MCV 90.4 fl (80.0-105.0) 12/28/17 05:20 MCH 30.2 pg (25.0-35.0) 12/28/17 05:20 MCHC 33.4 g/dl (31.0-37.0) 12/28/17 05:20 RDW 12.6 % (11.5-14.5) 12/28/17 05:20 Plt Count 237 10^3/uL (120.0-450.0) 12/28/17 05:20 MPV 10.2 fl (7.0-11.0) 12/28/17 05:20 Gran % 61.1 % (50.0-68.0) 12/28/17 05:20 Lymph % (Auto) 19.1 % (22.0-35.0) L 12/28/17 05:20 Lea % (Auto) 18.2 % (1.0-6.0) H 12/28/17 05:20 Eos % (Auto) 1.3 % (1.5-5.0) L 12/28/17 05:20 Baso % (Auto) 0.3 % (0.0-3.0) 12/28/17 05:20 Gran # 4.86 (1.4-6.5) 12/28/17 05:20 Lymph # (Auto) 1.5 (1.2-3.4) 12/28/17 05:20 Lea # (Auto) 1.5 (0.1-0.6) H 12/28/17 05:20 Eos # (Auto) 0.1 (0.0-0.7) 12/28/17 05:20 Baso # (Auto) 0.02 K/mm3 (0.0-2.0) 12/28/17 05:20 PT 12.8 SECONDS (9.4-12.5) H 12/27/17 16:15 INR 1.12 (0.93-1.08) H 12/27/17 16:15 APTT 69.5 Seconds (25.1-36.5) H 12/26/17 11:25 Sodium 136 mmol/L (132-148) 12/28/17 05:20 Potassium 4.1 mmol/L (3.6-5.0) 12/28/17 05:20 Chloride 99 mmol/L (98-107) 12/28/17 05:20 Carbon Dioxide 26 mmol/L (21-33) 12/28/17 05:20 Anion Gap 15 (10-20) 12/28/17 05:20 BUN 11 mg/dL (7-21) 12/28/17 05:20 Creatinine 1.1 mg/dl (0.8-1.5) 12/28/17 05:20 Est GFR ( Amer) > 60 12/28/17 05:20 Est GFR (Non-Af Amer) > 60 12/28/17 05:20 Random Glucose 131 mg/dL (70-110) H 12/28/17 05:20 Hemoglobin A1c 6.2 % (4.2-6.5) 12/27/17 05:45 Calcium 8.9 mg/dL (8.4-10.5) 12/28/17 05:20 Phosphorus 2.9 mg/dL (2.5-4.5) 12/27/17 05:45 Magnesium 2.1 mg/dL (1.7-2.2) 12/27/17 05:45 Total Bilirubin 0.4 mg/dL (0.2-1.3) 12/28/17 05:20 AST 19 U/L (17-59) 12/28/17 05:20 ALT 18 U/L (7-56) 12/28/17 05:20 Alkaline Phosphatase 76 U/L (38-126) 12/28/17 05:20 Total Protein 7.3 g/dL (5.8-8.3) 12/28/17 05:20 Albumin 3.4 g/dL (3.0-4.8) 12/28/17 05:20 Globulin 3.8 gm/dL 12/28/17 05:20 Albumin/Globulin Ratio 0.9 (1.1-1.8) L 12/28/17 05:20 Triglycerides 129 mg/dL (35-160) 12/27/17 05:45 Cholesterol 248 mg/dL (130-200) H 12/27/17 05:45 LDL Cholesterol Direct 177 mg/dL (0-129) H 12/27/17 05:45 HDL Cholesterol 35 mg/dL (29-60) 12/27/17 05:45 Lipase 53 U/L (23-300) 12/26/17 11:25 TSH 3rd Generation 2.43 mIU/mL (0.46-4.68) 12/27/17 05:45 Urine Color Yellow (YELLOW) 12/26/17 14:00 Urine Appearance Sl cloudy (CLEAR) 12/26/17 14:00 Urine pH 6.5 (4.7-8.0) 12/26/17 14:00 Ur Specific [place] <= 1.005 (1.005-1.035) 12/26/17 14:00 Urine Protein 30 mg/dL (<30 mg/dL) H 12/26/17 14:00 Urine Glucose (UA) Negative mg/dL (NEGATIVE) 12/26/17 14:00 Urine Ketones Negative mg/dL (NEGATIVE) 12/26/17 14:00 Urine Blood Negative (NEGATIVE) 12/26/17 14:00 Urine Nitrate Negative (NEGATIVE) 12/26/17 14:00 Urine Bilirubin Negative (NEGATIVE) 12/26/17 14:00 Urine Urobilinogen 0.2 E.U./dL (<1 E.U./dL) 12/26/17 14:00 Ur Leukocyte Esterase Negative Mae/uL (NEGATIVE) 12/26/17 14:00 Urine RBC Negative /hpf (0-2) 12/26/17 14:00 Urine WBC Negative /hpf (0-6) 12/26/17 14:00 - Hospital Course Hospital Course: Initial History of Present Illness pm 12/26/17: "This is a 62 year old male with PMHx CAD s/p 2 stents and right nephrolithiasis who presents complaining of right lower quadrant abdominal pain. Pain described as stabbing pain without radiation. Patient states that this began 5 days ago. Patient has tried Ibuprofen without relief at home. Patient is visiting from [place] for the past 3 months and is set to return in about 10 days. 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 Patient denies nausea, vomiting, constipation, diarrhea, dysuria , hematuria, hematochezia." Hospital Course: Patient admitted for right hydrouteronephrosis with the cause likely being right ureterovesical junction stricture. Patient was taken for cystoscopy on ; however, a stent was unable to be placed. The thought process was that this likely is congenital. Vascular renal scan ordered which showed decreased perfusion to the right kidney. Renal function is left side 92.8% and right side is 7.2%. No further procedures from urology standpoint. Patient stable for discharge from urology perspective. It was explained to the patient that they could follow up with interventional radiology either here or in [place] since patient is set to return soon. Patient verbalized understanding. Patient also advised on diet modification due to his heart disease as well as impaired glucose tolerance. This is a summary of the hospital course. For more information, refer to the medical records. Discharge Exam - Head Exam Head Exam: ATRAUMATIC, NORMOCEPHALIC - Eye Exam Eye Exam: EOMI, Normal appearance - ENT Exam ENT Exam: Mucous Membranes Moist - Respiratory Exam Respiratory Exam: Clear to PA & Lateral, NORMAL BREATHING PATTERN. absent: Rales, Rhonchi, Wheezes - Cardiovascular Exam Cardiovascular Exam: REGULAR RHYTHM, +S1, +S2 - GI/Abdominal Exam GI & Abdominal Exam: Normal Bowel Sounds, Soft. absent: Tenderness Additional comments: obese body habitus - Extremities Exam Extremities exam: pedal pulses present - Neurological Exam Neurological exam: Alert, CN II-XII Intact, Oriented x3 - Psychiatric Exam Psychiatric exam: Normal Affect, Normal Mood - Skin Skin Exam: Dry, Warm Discharge Plan - Discharge Medications Prescriptions: Aspirin [Aspirin Chewable] 81 mg PO DAILY #30 chew Atorvastatin [Lipitor] 40 mg PO DIN #30 tab Ibuprofen [Motrin] 400 mg PO Q6H PRN #21 tab PRN Reason: PAIN Metoprolol Tartrate [Lopressor] 25 mg PO BID #60 tab Ramipril [Altace] 10 mg PO DAILY #30 cap Tamsulosin [Flomax] 0.4 mg PO DAILY #30 cap - Follow Up Plan Condition: STABLE Disposition: HOME/ ROUTINE Instructions: Hydronephrosis, Adult (DC), Acute Abdominal Pain (DC) Additional Instructions: 1. Take Medications as directed. - Aspirin 81mg daily coronary artery disease - Lipitor 40mg daily for cholesterol - Metoprolol 25mg twice per day for blood pressure - Ramipril 10mg daily for blood pressure - Tamsulosin (Flomax) 0.4mg daily for kidney - Motrin 400 mg every 6 hours only if needed for pain. Take it with food. 2. Please make an appointment with Dr. Harlan Callahan whose information has been provided for you. If you are unable to make an appointment with him, please follow up with a specialist in [place]. 3. Recommend heart healthy diet (low fat) as well as exercise for elevated cholesterol. 4. Follow up with a primary doctor in 1 week. Referrals: Harsha Garsia MD [Staff Provider] - Harlan Callahan MD [Staff Provider] - <Ashli Sue - Last Filed: 12/29/17 13:02> Provider - Provider Date of Admission: 12/27/17 13:52 Attending physician: Ashli Sue MD Hospital Course - Lab Results Lab Results: Most Recent Lab Values WBC 8.0 10^3/ul (4.5-11.0) 12/28/17 05:20 RBC 4.57 10^6/uL (3.5-6.1) 12/28/17 05:20 Hgb 13.8 g/dL (14.0-18.0) L 12/28/17 05:20 Hct 41.3 % (42.0-52.0) L 12/28/17 05:20 MCV 90.4 fl (80.0-105.0) 12/28/17 05:20 MCH 30.2 pg (25.0-35.0) 12/28/17 05:20 MCHC 33.4 g/dl (31.0-37.0) 12/28/17 05:20 RDW 12.6 % (11.5-14.5) 12/28/17 05:20 Plt Count 237 10^3/uL (120.0-450.0) 12/28/17 05:20 MPV 10.2 fl (7.0-11.0) 12/28/17 05:20 Gran % 61.1 % (50.0-68.0) 12/28/17 05:20 Lymph % (Auto) 19.1 % (22.0-35.0) L 12/28/17 05:20 Lea % (Auto) 18.2 % (1.0-6.0) H 12/28/17 05:20 Eos % (Auto) 1.3 % (1.5-5.0) L 12/28/17 05:20 Baso % (Auto) 0.3 % (0.0-3.0) 12/28/17 05:20 Gran # 4.86 (1.4-6.5) 12/28/17 05:20 Lymph # (Auto) 1.5 (1.2-3.4) 12/28/17 05:20 Lea # (Auto) 1.5 (0.1-0.6) H 12/28/17 05:20 Eos # (Auto) 0.1 (0.0-0.7) 12/28/17 05:20 Baso # (Auto) 0.02 K/mm3 (0.0-2.0) 12/28/17 05:20 PT 12.8 SECONDS (9.4-12.5) H 12/27/17 16:15 INR 1.12 (0.93-1.08) H 12/27/17 16:15 APTT 69.5 Seconds (25.1-36.5) H 12/26/17 11:25 Sodium 136 mmol/L (132-148) 12/28/17 05:20 Potassium 4.1 mmol/L (3.6-5.0) 12/28/17 05:20 Chloride 99 mmol/L (98-107) 12/28/17 05:20 Carbon Dioxide 26 mmol/L (21-33) 12/28/17 05:20 Anion Gap 15 (10-20) 12/28/17 05:20 BUN 11 mg/dL (7-21) 12/28/17 05:20 Creatinine 1.1 mg/dl (0.8-1.5) 12/28/17 05:20 Est GFR ( Amer) > 60 12/28/17 05:20 Est GFR (Non-Af Amer) > 60 12/28/17 05:20 Random Glucose 131 mg/dL (70-110) H 12/28/17 05:20 Hemoglobin A1c 6.2 % (4.2-6.5) 12/27/17 05:45 Calcium 8.9 mg/dL (8.4-10.5) 12/28/17 05:20 Phosphorus 2.9 mg/dL (2.5-4.5) 12/27/17 05:45 Magnesium 2.1 mg/dL (1.7-2.2) 12/27/17 05:45 Total Bilirubin 0.4 mg/dL (0.2-1.3) 12/28/17 05:20 AST 19 U/L (17-59) 12/28/17 05:20 ALT 18 U/L (7-56) 12/28/17 05:20 Alkaline Phosphatase 76 U/L (38-126) 12/28/17 05:20 Total Protein 7.3 g/dL (5.8-8.3) 12/28/17 05:20 Albumin 3.4 g/dL (3.0-4.8) 12/28/17 05:20 Globulin 3.8 gm/dL 12/28/17 05:20 Albumin/Globulin Ratio 0.9 (1.1-1.8) L 12/28/17 05:20 Triglycerides 129 mg/dL (35-160) 12/27/17 05:45 Cholesterol 248 mg/dL (130-200) H 12/27/17 05:45 LDL Cholesterol Direct 177 mg/dL (0-129) H 12/27/17 05:45 HDL Cholesterol 35 mg/dL (29-60) 12/27/17 05:45 Lipase 53 U/L (23-300) 12/26/17 11:25 TSH 3rd Generation 2.43 mIU/mL (0.46-4.68) 12/27/17 05:45 Urine Color Yellow (YELLOW) 12/26/17 14:00 Urine Appearance Sl cloudy (CLEAR) 12/26/17 14:00 Urine pH 6.5 (4.7-8.0) 12/26/17 14:00 Ur Specific [place] <= 1.005 (1.005-1.035) 12/26/17 14:00 Urine Protein 30 mg/dL (<30 mg/dL) H 12/26/17 14:00 Urine Glucose (UA) Negative mg/dL (NEGATIVE) 12/26/17 14:00 Urine Ketones Negative mg/dL (NEGATIVE) 12/26/17 14:00 Urine Blood Negative (NEGATIVE) 12/26/17 14:00 Urine Nitrate Negative (NEGATIVE) 12/26/17 14:00 Urine Bilirubin Negative (NEGATIVE) 12/26/17 14:00 Urine Urobilinogen 0.2 E.U./dL (<1 E.U./dL) 12/26/17 14:00 Ur Leukocyte Esterase Negative Mae/uL (NEGATIVE) 12/26/17 14:00 Urine RBC Negative /hpf (0-2) 12/26/17 14:00 Urine WBC Negative /hpf (0-6) 12/26/17 14:00 Attending/Attestation - Attestation I have personally seen and examined this patient.: Yes I have fully participated in the care of the patient.: Yes I have reviewed all pertinent clinical information, including history, physical exam and plan: Yes Notes (Text): I have seen and examined the patient at bedside. Agree with the above note with the following additions/ exceptions: Briefly this is 62 year old male with history of CAD s/p 2 stents and right nephrolithiasis s/p stone removal who came for evaluation of abdominal pain. 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 Patient denies abdominal pain, fever, chills, hematuria or oliguria. Patient was admitted for pain control and urology evaluation. Patient is concerned that he is going back to [place] in 10 days.He wants to have the procedure in [place] where his previous surgery was done. Yesterday he underwent cystscopy however stent could not be placed due to stricture. Urologist advised to do renal function scan for evaluation of possible per cutaneous nephrostomy. Renal function scan was reviewed by urologist who thinks that this problem has been going on for many years and as he is currently asymptomatic, he can be discharged. Patient can follow up with urologist in [place]. Plan was explained to the patient and his son. Upon discharge patient will follow up with PMD of choice. Dr Ashli Sue
--- NOTE | 2018-01-07 08:31 | OP ---
PROCEDURE DATE: 12/27/2017 PREOPERATIVE DIAGNOSES: Voiding dysfunction and right massive hydronephrosis with a very hydronephrotic sac of the right kidney, hematuria. POSTOPERATIVE DIAGNOSES: Voiding dysfunction and right massive hydronephrosis with a very hydronephrotic sac of the right kidney, hematuria. PROCEDURE: Cystoscopy, attempted right retrograde pyelogram, a left retrograde pyelogram is done, insertion of Saravia catheter and a cystogram. COMPLICATIONS: There were no complications. INDICATIONS: See history and physical for further details and also dictated consultation note and daily progress note. She presented with right flank pain. On CT scan, he had kidney. I do not have a renal scan yet. See below plan. Patient reports though that as far as he knows kidney history from the patient and from the son translating, as far as he knows he has not had a specific problem with the kidney. In fact he had an open surgery about a few years back in [place] in his home country, with open surgery for kidney stone. He reports, after that he was fine. There were no evidence of a nonfunctioning kidney. See the plans listed below. Based on these, patient presented now with colic at distal, what looks like he has obstruction. The other possibilities are reflux or ureteral stricture and very difficulty to assess so we discussed option with the patient here now for the above procedure. Please see the addendum indications of the procedure. Patient complains of flank pain , which is interesting given what looks to be more chronic in nature. He is here for . DESCRIPTION OF PROCEDURE: Patient was placed in table, routine monitors were placed, time-out was called to confirm the patient, positioning etc. Antibiotic prophylaxis had been used. We introduced cystoscope via the urethra. Anterior urethra is normal with no strictures. Verumontanum is moderately visually occlusive. The ureteral orifice was identified on the left side. On the right side, I cannot find any asymmetry. It might be that there is a ureterocele there. It is difficult to evaluate, but I definitely do not see any urine coming down. The procedure continued and gently, we just confirmed by positioning, and then I tried with the symmetry, tried to turn the left and right. As you can see the films that are there are from the left side, though I cannot no matter how I try by gently pushing. I do not know if it is a strictured ureter, whether it is actually a ureterocele. Clinically, I do not see any efflux or anything . So at this point, we terminated the procedure. Just to see the bladder out the Saravia catheter, and we did a cystogram. The other issue would be the possibility for a reflux as part of the culprit. Although clinically, he does not have any evidence or signs of it. So we placed a Saravia catheter via urethra and we over distended the bladder to see if there are any signs of reflux. There are no signs of reflux. At this point, the patient tolerated without any complications. There is no evidence of reflux. It will be a little unusual to have a ureterocele at this point of patient's age. But also equally unusual is that the stone formed in his kidney. So at this point, we have to discuss the options. consult notes and the progress notes. Plan will be to get a renal scan and see the functioning. We can also offer the possibility of percutaneous nephrostolithotomy, although I do not really think this is a great idea at this point, especially if the patient is traveling country. Therefore, we again discussed the options at length. In the meantime, the plan is: 1. Monitor the patient. 2. Eventually have the patient voiding. 3. Consider percutaneous nephrostolithotomy nephrostomy tube insertion versus the possibility for no treatment, and we will first do a renal scan to determine. Joseph Garsia MD
--- NOTE | 2018-01-07 09:23 | CON ---
DATE: 01/04/2018 UROLOGY CONSULTATION REASON FOR CONSULTATION: Hydronephrosis. HISTORY OF PRESENT ILLNESS: A very pleasant gentleman who lives in [place] and here. Actually he is here now for a little while and he is going back shortly, if I can get the treatment, it could be . Coming to the hospital with some flank pain. In history, he had an open stone surgery in his country a few years back. he notes there was not problem, working. The patient now presents with some renal colic and right hydronephrosis. See the personal, past medical and surgical history, otherwise as listed. REVIEW OF SYSTEMS: As listed above. PHYSICAL EXAMINATION: GENERAL: Well-nourished, well-developed male, in no apparent distress. VITAL SIGNS: Noted. ABDOMEN: Soft, nontender. GENITOURINARY: Normal phallus without discharge. No testicular masses. RECTAL: . LABORATORY DATA: See chart. DIAGNOSIS: Right tremendously hydronephrotic right kidney. It looks more chronic and acute. The patient did have acute renal colic from this in this setting. I did not see any definite stones. PLAN: As follows: We need to determine the cause. We are going in the meanwhile try to stent it; it may not be big stent it, if we were able to do that resume some functioning. It has been known about for a while, but in regards to the level it is difficult to say. From a Urology standpoint, we may need to do renal scan, first we are going to try to put a stent do renal scan. We may consider some of this can be done now, some of this can be done as outpatient and we will see how the patient does clinically. But in the meantime, the plan as follows: 1. We are going to bring him to the OR, as it could be possible to do a cysto retrograde, I try to put a stent . We actually were not able to get a stent in ____. For the meantime, patient looks stable. Joseph Garsia MD
== END 2017-12-28 18:45 | disposition home or self-care (01) | DRG 694 ==
LOC: ED 10:38 → ERH 13:52 → 2A 21:30 → OBSVTOIN 12-27 13:52
PROVIDERS: ADMIT Hospitalist; ATTEND Hospitalist
PROC: BT1F1ZZ Fluoroscopy of Left Kidney, Ureter and Bladder using Low Osmolar Contrast (ICD-10-PCS; 2017-12-27)
PROC: BT101ZZ Fluoroscopy of Bladder using Low Osmolar Contrast (ICD-10-PCS; 2017-12-27)
PROC: 0TJB8ZZ Inspection of Bladder, Via Natural or Artificial Opening Endoscopic (ICD-10-PCS; principal; 2017-12-27 12:15)
DX: N13.2 Hydronephrosis with renal and ureteral calculous obstruction (principal); R31.9 Hematuria, unspecified; N28.89 Other specified disorders of kidney and ureter; I10 Essential (primary) hypertension; E78.5 Hyperlipidemia, unspecified; R73.02 Impaired glucose tolerance (oral); I25.10 Atherosclerotic heart disease of native coronary artery without angina pectoris; E66.9 Obesity, unspecified; Z68.34 Body mass index [BMI] 34.0-34.9, adult; Z95.5 Presence of coronary angioplasty implant and graft